=== PATIENT | female | born 1985 | race Two or more races ===

== ENCOUNTER → 2020-06-11 | Outpatient (REF) | payer OTHER | LOC: M LAB REF 16:34 | PROVIDERS: ATTEND Physician Assistant | DX: Z20.828 Contact with and (suspected) exposure to other viral communicable diseases (principal) ==

== ENCOUNTER → 2020-07-16 | Outpatient (CLI) | payer OTHER ==
--- NOTE | 2020-07-16 12:28 | REP ---
INDICATION: ABN CXR ? AAA COMPARISON: None. TECHNIQUE: Axial contrast enhanced images from the thoracic inlet to the upper abdomen using thoracic aortic angiographic technique with multiplanar re-formations followed by CT of the abdomen and pelvis. 100 ml Isovue 370 intravenous contrast material administered without complication. This CT examination was performed using the following dose reduction techniques: Automated exposure control, adjustment of mA and/or kv according to the patient's size, and use of iterative reconstruction technique. FINDINGS: There is dilatation to the proximal descending thoracic aorta measuring 3.6 cm diameter tapering to normal diameter at the diaphragmatic hiatus measuring 2.1 cm maximal diameter. There is no evidence for aneurysmal dilatation to the ascending thoracic aorta and no evidence for dissection. No cardiomegaly or pericardial effusion is appreciated. The pulmonary vasculature appears normal. The bilateral lung will are well aerated and clear. No consolidation, obvious nodule/mass, pleural effusion or pneumothorax. No mediastinal, hilar or axillary adenopathy. Surrounding musculoskeletal structures are intact. IMPRESSION: 1. 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 2. No acute mediastinal or pleuroparenchymal process appreciated. <Electronically signed by Diomedes Haro > 07/16/20 [id number]
--- NOTE | 2020-07-16 12:34 | REP ---
INDICATION: ABN CXR ? AAA COMPARISON: None TECHNIQUE: Axial contrast-enhanced images from the lung bases to the mid pelvis including aortic bifurcation using abdominal aortic angiogram technique with coronal and sagittal reformations. 100 cc Isovue 370 intravenous contrast material administered without complication. Multiplanar MIP reformations along with CT aortic angiogram obtained at the workstation. This CT examination was performed using the following dose reduction techniques: Automated exposure control, adjustment of mA and/or kv according to the patient's size, and use of iterative reconstruction technique. FINDINGS: The visualized descending thoracic and abdominal aorta are normal in caliber and without aneurysm or dissection. No periaortic inflammatory stranding or fluid identified. Major branch vessels of the abdominal aorta including celiac axis, superior mesenteric artery, renal arteries, inferior mesenteric artery and iliac arteries are patent and normal. Liver, spleen, pancreas, gallbladder, bilateral adrenal glands and kidneys are normal. The visualized enteric system is without obstruction or acute inflammatory process. No ascites. No free air. No adenopathy. IMPRESSION: Normal abdominal aorta and major branch vessels. No evidence for abdominal aortic aneurysm or dissection. No significant atherosclerotic disease. <Electronically signed by Diomedes Haro > 07/16/20 [id number]
== END ==
LOC: EDSEX 11:23 → M RAD 11:23
PROVIDERS: ATTEND Physician Assistant
DX: R91.8 Other nonspecific abnormal finding of lung field (principal)

== ENCOUNTER → 2021-10-26 | Outpatient (CLI) | payer OTHER ==
[~2021-10-26] MED LIST: PROHANCE 279.3MG/ML 15ML VIAL ONE; PROHANCE 279.3MG/ML 5ML VIAL ONE
== END ==
LOC: M PLAIMG 07:27
PROVIDERS: ATTEND Physician Assistant
DX: H90.3 Sensorineural hearing loss, bilateral (principal); R90.82 White matter disease, unspecified
CPT/HCPCS: 70553; A9576